=== PATIENT | male | born 1990 | race Caucasian/White ===

== ENCOUNTER 2017-09-01 19:30 | Inpatient (IN) | payer OTHER ==
[~2017-09-01] VITALS: Ht 177.8 cm; Wt 122.2 kg
[2017-09-01] MEDS ORDERED: ZOLPIDEM TARTRATE 10 MG TABLET PO PRN (20:45)
[2017-09-01] MEDS ORDERED: LORazepam 2 MG TABLET PO PRN (20:45)
[2017-09-01] MEDS ORDERED: HALOPERIDOL 5 MG TABLET PO PRN (20:45)
[2017-09-01 21:15] VITALS: BP 143/90
[2017-09-01 21:22] VITALS: BP 130/77
[2017-09-01] MEDS ORDERED: PNEUMOCOCCAL VACCINE POLYVALENT 0.5 ML VIAL [PPSV23] IM ONE (22:00)
[2017-09-01] MEDS ORDERED: INFLUENZA VIRUS VACCINE QVS 2017-18 (3YR+)/PF 60 MCG/0.5 ML SYRINGE IM ONE (22:00)
[2017-09-01] MEDS ORDERED: GuaiFENesin/D-METHORPHAN [SUGAR-FREE] 200-20MG/10 ML SYRUP UDCUP PO PRN (22:15)
[2017-09-01] MEDS ORDERED: ACETAMINOPHEN 325 MG TABLET PO PRN (22:15)
[2017-09-02 00:18] VITALS: BP 111/78
[2017-09-02 07:21] LABS: BASOPHILS % (AUTO) 0.3 % (0.0-2.0); EOSINOPHILS % (AUTO) 1.2 % (1.0-6.0); HEMOGLOBIN 14.2 g/dL (13.5-17.5); LYMPHOCYTES # (AUTO) 1.8 K/uL (1.0-4.8); LYMPHOCYTES % (AUTO) 16.6 % (22.0-44.0); MEAN CORPUSCULAR HEMOGLOBIN 28.8 pg (26.0-34.0); MEAN CORPUSCULAR HGB CONC 33.7 G/dL (31.0-37.0); MEAN CORPUSCULAR VOLUME 86 fL (80-100); MONOCYTES # (AUTO) 0.8 K/uL (0.1-1.0); MONOCYTES % (AUTO) 7.9 % (2.0-9.0); NEUTROPHILS # (AUTO) 7.9 K/uL (1.8-7.7); PLATELET COUNT (AUTO) 218 K/uL (150-450); RED BLOOD CELL COUNT(AUTO) 4.91 MIL/uL (4.50-5.90); RED CELL DISTRIBUTION WIDTH 13.7 % (11.5-14.5); WHITE BLOOD COUNT (AUTO) 10.7 K/uL (4.5-11.0)
[2017-09-02 07:48] LABS: HEMOGLOBIN A1C 6.2 % (4.5-6.2)
[2017-09-02 08:46] LABS: APPEARANCE,URINE CLOUDY (CLEAR); GLUCOSE, URINE (UA) NEGATIVE (NEGATIVE); KETONES,URINE NEGATIVE (NEGATIVE); LEUKOCYTE ESTERASE ,URINE NEGATIVE (NEGATIVE); OCCULT BLOOD,URINE NEGATIVE (NEGATIVE); PROTEIN,URINE POS 1+ (NEGATIVE)
[2017-09-02 08:47] LABS: ADD UA MICROSCOPIC YES
[2017-09-02 08:57] LABS: CALCIUM OXALATE CRYSTALS,UR Few /LPF (None Seen); RBC,URINE 0-2 /HPF (0-2); SQUAMOUS EPITHELIAL CELL,UR Few /LPF (None Seen); WBC,URINE 0-2 /HPF (0-5)
[2017-09-02 09:18] LABS: THYROID STIMULATING HORMONE 0.5 uIU/mL (0.36-3.74)
[2017-09-02 11:10] VITALS: BP 110/68
[2017-09-02 16:42] VITALS: BP 143/84
[2017-09-02] MEDS: OLANZapine 5 MG TABLET PO SCH (20:13)
[2017-09-03 06:33] VITALS: BP 124/82
[2017-09-03 09:55] VITALS: BP 125/74
[2017-09-03 16:17] VITALS: BP 121/73
[2017-09-03] MEDS: OLANZapine 5 MG TABLET PO SCH (20:17)
[2017-09-04 00:25] VITALS: BP 124/70
[2017-09-04 08:21] VITALS: BP 130/89
[2017-09-04 16:46] VITALS: BP 121/86
[2017-09-04] MEDS: OLANZapine 5 MG TABLET PO SCH (20:19)
[2017-09-05 06:57] VITALS: BP 123/68
[2017-09-05 09:15] VITALS: BP 124/75
[2017-09-05] MEDS ORDERED: OLAN5TAB2 PO (15:02)
[2017-09-05 16:36] VITALS: BP 103/50
== END 2017-09-05 16:50 | disposition home or self-care (01) | DRG 885 ==
LOC: B2S 20:00 → EDSTATUS 20:50
DX: F20.0 Paranoid schizophrenia (principal); F12.10 Cannabis abuse, uncomplicated; Z28.21 Immunization not carried out because of patient refusal; Z88.0 Allergy status to penicillin; Z71.51 Drug abuse counseling and surveillance of drug abuser; F19.10 Other psychoactive substance abuse, uncomplicated
CPT/HCPCS: 83036; 84439; 84443; 99285